=== PATIENT | male | born 1975 | race Two or more races ===

== ENCOUNTER 2024-08-07 21:04 | Emergency (ER) | payer OTHER, SELFPAY ==
[2024-08-07 21:06] VITALS: BP 182/100
[2024-08-07 21:34] VITALS: BP 163/107
[2024-08-07 21:36] VITALS: BMI 29.9
[2024-08-07 21:40] VITALS: BP 156/99
[2024-08-07 22:00] VITALS: BP 159/99
--- NOTE | 2024-08-07 22:12 | ED.GENMED ---
History of Present Illness
<Shu Pritchard PA-C - Last Filed: 08/08/24 00:19>
General
Chief Complaint: Blood Pressure Problem
Source: patient
Exam Limitations: none
Time Seen by Provider: 08/07/24 21:30
Nursing documentation reviewed up to this point in time: agreed with
History of Present Illness
History of Present Illness:
Patient is a 49-year-old male with history hypertension presenting to the emergency department for high blood pressure readings at home. Patient states that over the past few days he has felt a general heaviness in his head and behind his eyes. He
took his blood pressure at home and was seeing elevated readings. Today he noted very intermittent chest discomfort throughout the day which was not exertional or pleuritic in nature. His blood pressure at home was as high as 170/100s and he went
to urgent care for evaluation.
Urgent care [facility] basic labs and send patient to emergency department for further evaluation.
Patient denies any severe headache, vision changes, severe back pain, numbness/tingling in lower extremities, or weakness. Patient has been ambulating independently without difficulty.
Review of Systems
<Shu Pritchard PA-C - Last Filed: 08/08/24 00:19>
Review of Systems
Allergies reviewed?: Yes
All Other Systems: ROS reviewed and negative except as documented in HPI and ROS
Phy Exam
<Shu Pritchard PA-C - Last Filed: 08/08/24 00:19>
Physical Exam
Physical Exam:
Vitals: Hypertensive, otherwise vital signs are stable. Afebrile
General: Patient is well appearing, no acute distress. Nontoxic appearing
Skin: Warm and dry, no rashes or lesions
Head: Normocephalic, atraumatic
Eyes: Sclera nonicteric. EOMs intact. Pupils equal round and reactive to light bilaterally. No nystagmus. Normal funduscopic exam.
Throat: Protecting airway
Neck: Normal ROM, no cervical spine tenderness, no meningismus
Cardiac: Regular rate and rhythm, no murmurs.
Pulm: Normal respiratory effort, no wheezes, rales, rhonchi heard on exam.
Abdomen: Abdomen soft. No abdominal tenderness.
Extremities: No evidence of cyanosis or edema. Strength 5 out of 5 in upper and lower extremities. Sensation fully
Neuro: AAOx3. CN II-XII intact. No focal neurologic deficits. Speech fluid.
Psychiatric: Normal affect.
Course
<Shu Pritchard PA-C - Last Filed: 08/08/24 00:19>
Orders/Labs/Results
Orders:
Orders
08/07/24 21:10
Electrocardiogram (*1) Urgent
Reason for Study: Chest Pain
EKG- Treatment ONCE
08/07/24 21:54
Vital Signs- Treatment ONCE
Frequency: Once
08/07/24 22:13
Troponin I Urgent
08/07/24 22:37
Amlodipine [Norvasc] 5 mg PO NOW STA
08/07/24 23:06
TSH Reflex To Free T4 Urgent
Vital Signs
Initial and Last Documented VS:
Initial Vital Signs
Temp Pulse Resp BP Pulse Ox
98.0 F 73 18 182/100 100
08/07/24 21:06 08/07/24 21:06 08/07/24 21:06 08/07/24 21:06 08/07/24 21:06
Last Documented Vital Signs
Temp Pulse Resp BP Pulse Ox
98.0 F 67 17 127/81 99
08/07/24 21:06 08/08/24 00:04 08/08/24 00:00 08/08/24 00:04 08/08/24 00:04
<Lucas Davila DO - Last Filed: 08/07/24 23:26>
Orders/Labs/Results
Orders:
Orders
08/07/24 21:10
Electrocardiogram (*1) Urgent
Reason for Study: Chest Pain
EKG- Treatment ONCE
08/07/24 21:54
Vital Signs- Treatment ONCE
Frequency: Once
08/07/24 22:13
Troponin I Urgent
08/07/24 22:37
Amlodipine [Norvasc] 5 mg PO NOW STA
08/07/24 23:06
TSH Reflex To Free T4 Urgent
Vital Signs
Initial and Last Documented VS:
Initial Vital Signs
Temp Pulse Resp BP Pulse Ox
98.0 F 73 18 182/100 100
08/07/24 21:06 08/07/24 21:06 08/07/24 21:06 08/07/24 21:06 08/07/24 21:06
Last Documented Vital Signs
Temp Pulse Resp BP Pulse Ox
98.0 F 67 17 127/81 99
08/07/24 21:06 08/08/24 00:04 08/08/24 00:00 08/08/24 00:04 08/08/24 00:04
<Shu Pritchard PA-C - Last Filed: 08/08/24 00:19>
MDM/Problems Addressed
Differential Diagnosis Includes:
Not limited to: Hypertensive urgency, hypertensive emergency, asymptomatic hypertension,
MDM/Problems Addressed:
Patient presents with acute on chronic hypertension after medication noncompliance a few days ago. Although has since been compliant medication. History of intermittent atypical chest discomfort/mild headache all which have improved. On my
initial assessment�BP is 159/90s. Otherwise he has stable vital signs. Patient asymptomatic at this time. On exam�patient is well-appearing, in no apparent distress. Cardio/pulmonary assessment unremarkable. No focal neurologic deficits. EKG
obtained in triage which shows normal sinus rhythm without acute ischemic changes. Given history of chest pain�will obtain troponin. Patient did have basic labs obtained at urgent care prior to arrival to emergency department which I reviewed
personally. No abnormalities on CBC/chemistry. Will closely monitor and reassess.
Chronic conditions affecting care:
Hypertension
Acute Exacerbation and/or Progression of Chronic Illness:
Acute severe exacerbation of hypertension
<Lucas Davila DO - Last Filed: 08/07/24 23:26>
MDM/Problems Addressed
MDM/Problems Addressed:
Acute severe exacerbation of hypertension
<Shu Pritchard PA-C - Last Filed: 08/08/24 00:19>
*Pulse Oximetry
Patient hypoxic: no
*EKG
Interpreted by ED Provider?: Yes
EKG Intrepretation Date: 08/07/24
Interpretation: normal
Comparison EKG: no comparison EKG present
Heart Rate: 65
Rate: normal
Rhythm: sinus
[place]: normal axis
Interval: normal interval
QRS Pattern: normal QRS
Ischemia: no ischemia
*Death Claim Examiner Interpretation
Rate: normal
Interpretation: normal
Heart Rate: 68
Rhythm: sinus
*Critical Care Note
Total Time (30-74mins, 75-104mins- exclusive of procedures): Not Applicable
<Shu Pritchard PA-C - Last Filed: 08/08/24 00:19>
Update Note
Update Note:
Update: Troponin undetectable. No indication of endorgan damage. Patient remains well-appearing without any neurologic deficits. Patient will take his nightly dose of losartan. Given severe exacerbation of hypertension�patient will likely
require additional BP medication. Will start patient on 5 mg Amlodipine and give dose in emergency department.
Update 12:08 a.m.: Into reassess patient after his medications. His blood pressures decreased to 127/85. Patient remains well-appearing. Will send prescription to pharmacy for addition of amlodipine in the short-term until blood pressure under
better control. He is stable for discharge and will follow with his primary tomorrow for further management of blood pressure. Patient seen with attending physician.
ED Attending Note
<Shu Pritchard PA-C - Last Filed: 08/08/24 00:19>
-
Portions of this chart may have been created with voice recognition software.� Occasional wrong word or��sound alike� substitutions may have occurred due to the inherent limitations of voice recognition software.
<Lucas Davila DO - Last Filed: 08/07/24 23:26>
ED Attending Note
Patient seen and examined by attending physician: Yes
I performed the substantive portion of visit, reviewed & personally made and approve the management plan that is documented in note by myself or CARLIE.: Yes
ED Attending Note:
49-year-old male with history of hypertension who admits he has been noncompliant with his medications recently presents with a variety of complaints. Mild vague headache, intermittent mild chest discomfort, little bit of left arm numbness. All
symptoms have now resolved. The patient states he was seen in urgent care and had labs performed. He has contact with his doctor to try to figure out what his blood pressure has not been controlled but does admit he has not been fully compliant.
Exam: Awake and alert, heart regular, no murmurs, no obvious focal motor deficits. Assessment plan: Add troponin. EKG normal. Anticipate outpatient management but add additional second agent. Recommend amlodipine
Discharge Plan
Departure
Patient Disposition: Home (Routine Discharge)
Date of Disposition: 08/08/24
Time of Disposition: 00:11
Patient with high blood pressure during this ER visit?: Yes
Condition: Good
Covid-19: Not Applicable
Discharge Problem:
Hypertension
Instructions: High Blood Pressure (DC), BLOOD PRESSURE
Prescriptions:
New
amlodipine 5 mg tablet
5 mg PO DAILY Qty: 30 0RF
Referrals:
Kain Hadley DO [Family Provider] - Tomorrow
Activity Restrictions/Additional Instructions:
RETURN TO THE EMERGENCY DEPARTMENT WITH ANY CHEST PAIN, SHORTNESS OF BREATH, SEVERE BACK PAIN, VISION CHANGES, NUMBNESS/TINGLING IN EXTREMITIES, WEAKNESS, OR OTHER CONCERNS
-Continue to take your medications as prescribed. We have added 1 additional medication that you should take daily.
-Continue to monitor your blood pressure once daily. Please hold amlodipine if you have systolic blood pressures less than 100 or diastolic blood pressures less than 60. If you have readings 220/120 in addition to symptoms please return to the
emergency department.
-Stay well-hydrated. Avoid salty foods
-As discussed that she will need to follow-up with your primary care doctor in a few days for further evaluation/management and continued management of blood pressure. Please let them know that we have added an additional medication to your regimen.
Monitor your symptoms closely return to the emergency department with any acute worsening/new symptoms or any other concern
Interventions
Interventions:
*Risk Screen - Suicide Last Done: 08/07/24 21:06
*General Assessment Last Done: 08/07/24 21:06
*Neglect/Abuse Screening Last Done: 08/07/24 21:06
*ED COVID-19 Vaccine History Last Done: 08/07/24 21:06
ED- Cardiac Assessment Last Done: 08/07/24 21:36
ED- Neurological Assessment Last Done: 08/07/24 21:36
ED- Pulmonary Assessment Last Done: 08/07/24 21:36
Discharge Date and Time
Print Language: OCCITAN
[2024-08-07 22:42] LABS: Troponin I < 0.012 ng/ml
[2024-08-07 23:09] VITALS: BP 164/107
[2024-08-07] MEDS: NORVASC 5 MG PO (23:20)
[2024-08-08] VITALS: BP 124/80
[2024-08-08 00:04] VITALS: BP 127/81
[2024-08-08 00:07] LABS: TSH Reflex To Free T4 2.29 uIU/ml (0.47-4.68)
[2024-08-08 00:31] VITALS: BP 137/91
== END 2024-08-08 00:41 | disposition home or self-care (01) ==
LOC: EMR 21:04
PROVIDERS: Physician Assistant; EMERGENCY PHYSICIAN Emergency Medicine; FAMILY PHYSICIAN Student in an Organized Health Care Education/Training Program
DX: I10 Essential (primary) hypertension (principal)
CPT/HCPCS: 99283; 84443; 84484; 93005